=== PATIENT | female | born 2000 | race Caucasian/White ===

== ENCOUNTER 2018-11-30 20:00 | Observation (INO) ==
[2018-11-30] MEDS ORDERED: SODIUM CHLORIDE 0.9% 1000ML 1,000 ML IV ONE (20:27)
[2018-11-30] MEDS ORDERED: ONDANSETRON INJ 2 MG/ML 2 ML VIAL IV STA (20:27)
[2018-11-30] MEDS ORDERED: ONDANSETRON INJ 2 MG/ML 2 ML VIAL ONE ×2 (20:28→23:23)
[2018-11-30] MEDS ORDERED: HYDROmorphone INJ 0.5 MG/0.5 ML SYR IV PRN (20:34)
[2018-11-30] MEDS ORDERED: KETOROLAC 30 MG/ML VIAL IV STA (20:34)
[2018-11-30 20:38] LABS: Basophils # (auto) 0.01 K/uL (0-0.2); Basophils % (auto) 0.1 %; Eosinophils # (auto) 0.05 K/uL (0-0.5); Eosinophils % (auto) 0.4 %; Hematocrit (blood only) 37.7 % (37-47); Hemoglobin 12.9 g/dL (12.0-16.0); Immature Granulocytes # (auto) 0.03 K/uL (0.00-0.02); Immature Granulocytes % (auto) 0.2 %; Lymphocytes # (auto) 1.74 K/uL (1.2-3.4); Lymphocytes % (auto) 13.7 %; Mean Corpuscular Hemoglobin 29.5 pg (25-34); Mean Corpuscular Hgb Conc 34.2 g/dL (32-36); Mean Corpuscular Volume 86.3 fL (80-100); Mean Platelet Volume 8.8 fL (7.4-10.4); Monocytes # (auto) 0.68 K/uL (0.11-0.59); Monocytes % (auto) 5.4 %; Neutrophils # (auto) 10.19 K/uL (1.4-6.5); Neutrophils % (auto) 80.2 %; Platelet Count 245 K/uL (130-400); RDW Coefficient of Variation 13.1 % (11.5-14.5); RDW Standard Deviation 41.5 fL (36.4-46.3); Red Blood Count 4.37 M/uL (4.2-5.4)
[2018-11-30 20:49] LABS: iSTAT Creatinine 0.8 mg/dl; iSTAT Hemoglobin 13.3 g/dl (12.0-16.0); iSTAT Ionized Calcium 1.14 mmol/l; iSTAT Potassium 3.2 mEq/L (3.3-5.0)
[2018-11-30 20:54] LABS: Albumin Level 3.9 gm/dl (3.4-5.0); BUN Creatinine Ratio 13.8 (10-20); Calcium 9.7 mg/dl (8.5-10.1); Creatinine Clr Calc Pharmacy 72.5 ml/min; Est GFR (African American) 93.9; Potassium 3.2 mmol/L (3.5-5.1)
[2018-11-30 20:57] LABS: Bilirubin,Total 0.5 mg/dl (0.2-1); Total Protein 7.9 gm/dl (6.4-8.2)
[2018-11-30 21:26] LABS: Pregnancy Test, Serum Negative (Negative)
[2018-11-30] MEDS ORDERED: cefOXitin 2,000 MG/60 ML BAG IV STA (21:37)
--- NOTE | 2018-11-30 21:45 | Ultrasound Report ---
PELVIC ULTRASOUND, TRANSABDOMINAL AND TRANSVAGINAL HISTORY: Right lower quadrant pain. COMPARISON: None. FINDINGS: Uterus: 6.9 x 3.6 x 4.2 cm. A few small nabothian cysts. Endometrial stripe: 5 mm in thickness. Right ovary: Normal in size and demonstrates normal color flow. Left ovary: Normal in size and demonstrates normal color flow. Miscellaneous:There is a blind-ending tubular structure within the right lower quadrant measuring up to 8 mm in thickness. This is noncompressible and likely represents the appendix. Small amount of pel lenny free fluid. IMPRESSION: 1. Normal uterus and ovaries. 2. Abnormal appearing appendix as described above likely representing acute appendicitis. 3. Small amount of pelvic free fluid. Electronically signed by: Earnest Nix M.D. 11/30/2018 9:42 PM
[2018-11-30] MEDS ORDERED: BUPIVACAINE/EPINEPHRINE 0.5% MPF 1:200,000 30 ML VIAL ONE (21:58)
[2018-11-30 22:05] LABS: Pregnancy Test, Urine Negative (Negative)
[2018-11-30 22:06] LABS: Appearance Urine Cloudy (Clear); Bilirubin Urine Negative (Negative); Blood Urine Negative (Negative); Color Urine Dark Yellow; Epithelial Cell Urine Auto >30 /lpf (0-5); Glucose Urine UA Negative (Negative); Ketones Urine 2+ (Negative); Leukocyte Esterase Urine Negative (Negative); Nitrite Urine Negative (Negative); Specific Gravity Urine 1.026 (1.000-1.030); Urobilinogen Urine Negative (Negative); pH Urine >= 9.0 (4.5-7.5)
[2018-11-30 22:10] LABS: Protein Urine Negative (Negative); Sulfosalicylic Acid Urine Negative (Negative)
[2018-11-30 22:19] LABS: Bacteria Urine Automated 1+ (Negative); Cast Urine Automated 0 /lpf (0-5); Mucus Urine Present (None Prsent); RBC Urine Automated 0-4 /hpf (0-4)
--- NOTE | 2018-11-30 22:26 | History & Physical Report ---
Date of Service November 30, 2018 Assessment & Plan (1) Acute appendicitis: discussed with pt and her parents via phone. discussed options/risks ( bleeding/infection/dvt/pe/mi/cva/injury to an organ /leaks etc...) questions answered. will proceed with lap poss open appendectomy litzy. History of Present Illness Primary Care Provider: [facility] pt with lower abdominal pain and n/v starting this am. progressed. w/u in ER reveals acute appendicitis. Allergies Allergy/AdvReac Type Severity Reaction Status Date / Time No Known Allergies Allergy Verified 11/30/18 20:30 Home Medications Home Medications Medication Instructions Recorded Confirmed Type minocycline 50 mg PO DAILY 11/30/18 11/30/18 History norgestimate-ethinyl estradiol 1 tab PO DAILY 11/30/18 11/30/18 History [Ortho Tri-Cyclen (28)] Past Med/Surg History Social History Preferred Language: Sinhala Feels Safe at Home: Yes Smoking Status: Never smoker Review of Systems All systems reviewed & are unremarkable except as noted in HPI & below Physical Exam Constitutional: WD/WN, vitals as above no acute distress and not ill appearing Eyes: PERRL, conjunctivae normal, anicteric sclerae EOM intact bilaterally ENMT: external ear and nose normal, oropharynx normal Ears: no hearing impairment Neck: trachea midline, no thyromegaly Respiratory: normal respiratory effort; no respiratory distress and does not use accessory muscles Cardiovascular: Rate/Rhythm: regular rate and regular rhythm Gastrointestinal (Abdomen): soft. +RLQ ttp. +guarding/rebound. Skin: no rashes, warm and dry Psychiatric: Orientation: alert, oriented x 3 and cooperative Results & Data Vital Signs (Past 12 Hours) Vital Signs Temp Pulse Pulse Resp BP BP Pulse Ox 11/30/18 21:48 79 16 139/78 98 11/30/18 20:07 36.5 C 99 H 32 H 147/91 H 98
--- NOTE | 2018-11-30 22:44 | Anesthesiology Consultation ---
Date of Service November 30, 2018 Assessment & Plan (1) Encounter for pre-operative examination: Chart Review Chart Review: Acceptable Risk for Surgery and Patient NOT seen in Pre Admission Testing Consults Requested none ASA [id number] Proposed Anesthesia Anesthesia Type: General Risk / Benefits Reviewed With: PT / POA / Parent / Guardian, Accepts Plan and Informed Consent Obtained History Surgery Operation Date: 11/30/18 21:50 Proposed Procedures p Laparoscopic Appendectomy - Ilan Lentz, DO Height/Weight Height: 5 ft 4 in Weight: 51.2 kg Allergies Allergy/AdvReac Type Severity Reaction Status Date / Time No Known Allergies Allergy Verified 11/30/18 20:30 Medications Home Medications Medication Instructions Recorded Confirmed Last Taken minocycline 50 mg PO DAILY 11/30/18 11/30/18 11/30/18 norgestimate-ethinyl estradiol 1 tab PO DAILY 11/30/18 11/30/18 11/30/18 [Ortho Tri-Cyclen (28)] Active Medications Generic Name Dose Route Start Last Admin Trade Name Freq PRN Reason Stop Dose Admin Hydromorphone HCl 0.5 mg 11/30/18 20:34 11/30/18 20:46 Dilaudid IV 12/14/18 20:33 0.5 mg Q15M PRN Administration Pain NPO Date Last Intake of Fluids: 11/30/18 Time Last Intake of Fluids: 21:00 Last Intake of Fluids Comment: oral contrast Date Last Intake of Solids: 11/30/18 Time Last Intake of Solids: 17:00 Exercise / Class Metabolic Activity II 4-5 Yardwork/Stairs/Walk up hill Past Anesthesia History No Hx of Anesthesia Complications and No Family Hx of Anesthesia Complications History of PONV No Hx of PONV and No Hx of Motion Sickness Social History Smoking Status: Never smoker Physical Exam Vital Signs Last Vital Signs Temp 36.5 C 11/30/18 20:07 Pulse 79 11/30/18 21:48 Resp 16 11/30/18 21:48 BP 139/78 11/30/18 21:48 Pulse Ox 98 11/30/18 21:48 ENMT Mouth: no dentition abnormality Thyromental Distance: > or= 3.5 Finger Breadths Mallampati Class: II Neck normal visual inspection Respiratory normal respiratory effort Auscultation: lungs clear to auscultation bilaterally Cardiovascular Rate/Rhythm: regular rate and regular rhythm Psychiatric Orientation: alert Testing Laboratory Results 11/30/18 20:26 11/30/18 20:26 Urine Color Dark Yellow 11/30/18 21:40 Urine Appearance Cloudy (Clear) A 11/30/18 21:40 Urine pH >= 9.0 (4.5-7.5) H 11/30/18 21:40 Ur Specific [place] 1.026 (1.000-1.030) 11/30/18 21:40 Urine Protein Negative (Negative) 11/30/18 21:40 Urine Glucose (UA) Negative (Negative) 11/30/18 21:40 Urine Ketones 2+ (Negative) H 11/30/18 21:40 Urine Nitrite Negative (Negative) 11/30/18 21:40 Ur Leukocyte Esterase Negative (Negative) 11/30/18 21:40 Urine WBC (Auto) 1-5 /hpf (0-5) 11/30/18 21:40 Urine RBC (Auto) 0-4 /hpf (0-4) 11/30/18 21:40 U Hyaline Cast (Auto) 0 /lpf (0-5) 11/30/18 21:40 U Epithel Cells (Auto) >30 /lpf (0-5) H 11/30/18 21:40 Urine Bacteria (Auto) 1+ (Negative) H 11/30/18 21:40 Urine Test Negative (Negative) 11/30/18 21:40 11/30/18 20:35 POC Glucose (other) 121 H 11/30/18 21:40 Urine Test Negative
[2018-11-30] MEDS ORDERED: fentaNYL citrate 100 MCG/2 ML VIAL ONE ×2 (22:47)
[2018-11-30] MEDS ORDERED: MoRPHine SULFATE 2 MG/ML CARP ONE (23:06)
[2018-11-30] MEDS ORDERED: PROPOFOL IV EMULSION 10 MG/ML 20 ML VIAL IV ONE (23:22)
[2018-11-30] MEDS ORDERED: LIDOCAINE HCL 2% 2 ML VIAL/AMP(20MG/ML) INFIL ONE (23:22)
[2018-11-30] MEDS ORDERED: DEXAMETHASONE SOD INJ 4 MG/ML VIAL ONE (23:23)
[2018-11-30] MEDS ORDERED: SUCCINYLCHOLINE CHLORIDE 20 MG/ML 10 ML VIAL ONE (23:23)
[2018-11-30] MEDS ORDERED: KETOROLAC 30 MG/ML VIAL ONE (23:23)
[2018-11-30] MEDS ORDERED: ROCURONIUM BROMIDE 10 MG/ML 5 ML VIAL ONE (23:23)
--- NOTE | 2018-11-30 23:37 | Operative Report ---
Post Operative Report Pre & Post Diagnosis Operation Date: 11/30/18 21:50 Pre-Op Diagnosis: Acute appendicitis Post-Op Diagnosis: Acute appendicitis Procedure Operation Date: 11/30/18 21:50 Actual Procedures p Laparoscopic Appendectomy(Not Applicable) - Ilan Lentz DO Surgeon Ilan Lentz DO Meter Repairer n/a Estimated Blood Loss 5 Findings Consistent with Post-Op Diagnosis Specimens appendix Description of Procedure After informed consent was obtained the patient was taken to the operating room and placed in supine position. After successful intubation a Mora catheter was placed and the left arm was tucked. A Mora catheter was inserted sterilely. I began by making a periumbilical incision with an 11 blade scalpel and carried this down through the soft tissue using electrocautery. The anterior rectus fascia was opened using electrocautery and 2 #0 Vicryl stay sutures were placed. The peritoneum was elevated using hemostats and incised under direct vision using a Metzenbaum scissor. A finger sweep was performed. A 12 mm Yanez trocar was placed and the abdomen was insufflated to 18 mmHg. A laparoscope was inserted and the abdomen was examined in 360. A suprapubic 5 mm port and a left lower quadrant 12 mm port were placed under direct vision. The patient was air planed to the left as well as placed in a slight Trendelenburg position. We began by looking in the right lower quadrant. We were able to readily identify the appendix and it was grossly inflamed. It had not perforated. There is a small amount of purulent fluid in the right lower quadrant and the pelvis. We immediately irrigated and suctioned this out. I was able to use primarily blunt dissection to pull the appendix away from the right lower quadrant sidewall. I was then able to use a GARCIA brown cartridge stapler to transect both the mesentery of the appendix as well as the appendix itself at its base with the cecum. It was then placed into an Endo Catch bag and removed from the camera port site. We thoroughly irrigated the right lower quadrant as well as the pelvis. There was adequate hemostasis. I ran the small bowel backwards from the terminal ileum for about 6 feet all of which was normal. All the peritoneal surfaces were normal. Small/ large bowel, liver, stomach etc. all appeared grossly normal. We did a final irrigation and then removed all the trochars and desufflated the abdomen. The fascia of the camera port as well as the left lower quadrant were closed using 0 Vicryl in [id number] fashion. Wounds were all irrigated and closed using 4-0 Monocryl. Marcaine was injected around them for postoperative analgesia and skin glue used as a dressing. The patient was awakened extubated and transferred to recovery in stable condition. I attest to the content of the Intraoperative Record and any orders documented therein. Any exceptions are noted below.
--- NOTE | 2018-11-30 23:49 | Emergency Department Note ---
History of Present Illness General Chief complaint: Abdominal Pain Stated complaint: EXTREME ABD PAIN, THROWN UP Time Seen by Provider: 11/30/18 20:19 Source: patient, family, RN notes reviewed and friends Mode of arrival: ambulatory History of Present Illness Provider complaint: abdominal pain Onset (ago): hour(s) 6 Location: abdomen Radiation: back Severity: severe Pain Consistency: + constant Maximum Pain Intensity: 10 Current Pain Intensity: 10 Quality: + aching Relieved By: + none Exacerbated By: + none Associated symptoms: + nausea/vomiting Treatments prior to arrival: none This is a 18-year-old female who presents emergency department complaining of severe right lower quadrant abdominal pain approximately 6 hours prior to arrival to the emergency department. Patient relates that she has been having this pain for the past year however today became very severe. The patient thought she was having an ovarian issue. She reports she does not feel she is and last menstrual period was approximately 1 week ago. She denies retained tampon. She does report a family history of her father having her appendix out. The patient passed out twice here in the emergency department including once in triage from the pain. Home Medications Home Medications Medication Instructions Recorded Confirmed Type minocycline 50 mg PO DAILY 11/30/18 11/30/18 History norgestimate-ethinyl estradiol 1 tab PO DAILY 11/30/18 11/30/18 History [Ortho Tri-Cyclen (28)] Allergies Allergy/AdvReac Type Severity Reaction Status Date / Time No Known Allergies Allergy Verified 11/30/18 20:30 Past Med/Surg History Social History Preferred Language: Georgian Feels Safe at Home: Yes Smoking Status: Never smoker Review of Systems A total of 10 systems reviewed and were otherwise negative Physical Exam Vital Signs Vital Signs - 24 hr 11/30/18 20:07 11/30/18 21:48 11/30/18 22:39 Temperature 36.5 C Temperature Source Oral Sepsis Recent Fever Within 48 Hours No Sepsis Action Taken by Nursing No Action Required Pulse Rate 99 H Pulse Rate [Right Finger] 79 Pulse Rhythm Regular Pulse Strength Normal Respiratory Rate 32 H 16 Respiratory Effort / Characteristics Non-Labored Spontaneous Non-Labored Spontaneous Respiratory Depth Normal Normal Respiratory Pattern Regular Regular Blood Pressure 147/91 H Blood Pressure [Right Arm] 139/78 Blood Pressure Mean 109 Blood Pressure Mean [Right Arm] 98 Blood Pressure Position Sitting Blood Pressure Position [Right Arm] Lying Pulse Oximetry 98 98 Oxygen Delivery Method Room Air Room Air Room Air GENERAL: Patient is a healthy-appearing well-nourished HEAD: Normocephalic atraumatic EYES: Ocular movements intact pupils equal and react to light OROPHARYNX mucous membranes are moist no exudates present no erythema or edema present NECK: Supple no nuchal rigidity CHEST: Good equal expansion LUNGS: Clear and equal to auscultation CARDIAC: Normal S1 and S2 ABDOMEN: Soft, tender in RLQ, + guarding BACK: No CVA tenderness EXTREMITIES: No pain upon palpation normal muscle strength in all groups no clubbing cyanosis or edema NEURO: Patient is following commands is answering questions appropriately. Alert and oriented x3 Cranial Nerves 2-12 grossly intact Course Administered Medications Hydromorphone HCl (Dilaudid) 0.5 mg IV Q15M PRN PRN Reason: Pain Stop: 12/14/18 20:33 Last Admin: 11/30/18 20:46 Dose: 0.5 mg Documented by: [id number] Discontinued Medications Bupivacaine HCl/Epinephrine Bitart (Sensorcaine/Epinephrine 0.5% Mpf 1:200,000) Confirm Administered Dose 30 ml .ROUTE .STK-MED ONE Stop: 11/30/18 21:59 Last Admin: 11/30/18 23:24 Dose: 24 ml Documented by: [id number] Sodium Chloride (Nss 1000ml) 1,000 mls @ 999 mls/hr IV .Q1H1M ONE Stop: 11/30/18 21:27 Last Infusion: 11/30/18 21:47 Dose: 0 mls/hr Documented by: [id number] Admin: 11/30/18 20:42 Dose: 999 mls/hr Documented by: [id number] Cefoxitin Sodium (Mefoxin) 2,000 mg in 60 mls @ 100 mls/hr IV NOW STA Stop: 11/30/18 22:12 Last Admin: 11/30/18 22:06 Dose: 100 mls/hr Documented by: [id number] Ketorolac Tromethamine (Toradol) 30 mg IV NOW STA Stop: 11/30/18 20:35 Last Admin: 11/30/18 20:46 Dose: 30 mg Documented by: [id number] Ondansetron HCl (Zofran) Confirm Administered Dose 4 mg .ROUTE .STK-MED ONE Stop: 11/30/18 20:29 Last Admin: 11/30/18 20:42 Dose: Not Given Documented by: [id number] Ondansetron HCl (Zofran) 4 mg IV NOW STA Stop: 11/30/18 20:28 Last Admin: 11/30/18 20:42 Dose: 4 mg Documented by: [id number] Medical Decision Making Medical Records Attestation: I reviewed the patient's medical records. Home Medications Current Medication List: was personally reviewed by me Laboratory Data Attestation: I reviewed the patient's lab results. Result diagrams: 11/30/18 20:26 11/30/18 20:26 Lab Results 11/30/18 11/30/18 11/30/18 Range/Units 20:26 20:26 20:26 WBC 12.70 H (4.8-10.8) K/uL RBC 4.37 (4.2-5.4) M/uL Hgb 12.9 (12.0-16.0) g/dL POC Hgb (12.0-16.0) g/dl Hct 37.7 (37-47) % POC Hct (37-47) % MCV 86.3 (80-100) fL MCH 29.5 (25-34) pg MCHC 34.2 (32-36) g/dL RDW Std Deviation 41.5 (36.4-46.3) fL RDW Coeff of Vane 13.1 (11.5-14.5) % Plt Count 245 (130-400) K/uL MPV 8.8 (7.4-10.4) fL Immature Gran % (Auto) 0.2 % Neut % (Auto) 80.2 % Lymph % (Auto) 13.7 % Brooks % (Auto) 5.4 % Eos % (Auto) 0.4 % Baso % (Auto) 0.1 % Immature Gran # (Auto) 0.03 H (0.00-0.02) K/uL Neut # (Auto) 10.19 H (1.4-6.5) K/uL Lymph # (Auto) 1.74 (1.2-3.4) K/uL Brooks # (Auto) 0.68 H (0.11-0.59) K/uL Eos # (Auto) 0.05 (0-0.5) K/uL Baso # (Auto) 0.01 (0-0.2) K/uL POC Sodium (135-144) mEq/L Sodium 138 (136-145) mmol/L POC Potassium (3.3-5.0) mEq/L Potassium 3.2 L (3.5-5.1) mmol/L POC Chloride (101-112) mEq/L Chloride 106 (98-107) mmol/L Carbon Dioxide 21 (21-32) mmol/L POC Total CO2 (24-31) mEq/l Anion Gap 12.0 H (3-11) POC Anion Gap (16-25) mmol/L POC BUN (7-18) mg/dl BUN 14 (7-18) mg/dl Creatinine 1.00 (0.6-1.2) mg/dl POC Creatinine mg/dl Est Cr Clr Drug Dosing 72.5 ml/min Est GFR ( Amer) 93.9 Est GFR (Non-Af Amer) 81.0 BUN/Creatinine Ratio 13.8 (10-20) Glucose 121 H (70-99) mg/dl POC Glucose (other) (70-99) mg/dl Calcium 9.7 (8.5-10.1) mg/dl POC Ioniz Calcium Kunal mmol/l Total Bilirubin 0.5 (0.2-1) mg/dl AST 16 (15-37) U/L ALT 17 (12-78) U/L Alkaline Phosphatase 65 (45-117) U/L Total Protein 7.9 (6.4-8.2) gm/dl Albumin 3.9 (3.4-5.0) gm/dl Globulin 4.0 (2.5-4.0) gm/dl Albumin/Globulin Ratio 1.0 (0.9-2) Lipase 128 (73-393) U/L HCG, Qual Negative (Negative) Urine Color Urine Appearance (Clear) Urine pH (4.5-7.5) Ur Specific [place] (1.000-1.030) Urine Protein (Negative) Urine Glucose (UA) (Negative) Urine Ketones (Negative) Urine Blood (Negative) Urine Nitrite (Negative) Urine Bilirubin (Negative) Urine Urobilinogen (Negative) Ur Leukocyte Esterase (Negative) Urine WBC (Auto) (0-5) /hpf Urine RBC (Auto) (0-4) /hpf U Hyaline Cast (Auto) (0-5) /lpf U Epithel Cells (Auto) (0-5) /lpf Urine Bacteria (Auto) (Negative) Urine Mucus (None Prsent) Urine Yeast Urine Test (Negative) 11/30/18 11/30/18 11/30/18 Range/Units 20:35 21:40 21:40 WBC (4.8-10.8) K/uL RBC (4.2-5.4) M/uL Hgb (12.0-16.0) g/dL POC Hgb 13.3 (12.0-16.0) g/dl Hct (37-47) % POC Hct 39 (37-47) % MCV (80-100) fL MCH (25-34) pg MCHC (32-36) g/dL RDW Std Deviation (36.4-46.3) fL RDW Coeff of Vane (11.5-14.5) % Plt Count (130-400) K/uL MPV (7.4-10.4) fL Immature Gran % (Auto) % Neut % (Auto) % Lymph % (Auto) % Brooks % (Auto) % Eos % (Auto) % Baso % (Auto) % Immature Gran # (Auto) (0.00-0.02) K/uL Neut # (Auto) (1.4-6.5) K/uL Lymph # (Auto) (1.2-3.4) K/uL Brooks # (Auto) (0.11-0.59) K/uL Eos # (Auto) (0-0.5) K/uL Baso # (Auto) (0-0.2) K/uL POC Sodium 138 (135-144) mEq/L Sodium (136-145) mmol/L POC Potassium 3.2 L (3.3-5.0) mEq/L Potassium (3.5-5.1) mmol/L POC Chloride 105 (101-112) mEq/L Chloride (98-107) mmol/L Carbon Dioxide (21-32) mmol/L POC Total CO2 22 L (24-31) mEq/l Anion Gap (3-11) POC Anion Gap 15.0 L (16-25) mmol/L POC BUN 12 (7-18) mg/dl BUN (7-18) mg/dl Creatinine (0.6-1.2) mg/dl POC Creatinine 0.8 mg/dl Est Cr Clr Drug Dosing ml/min Est GFR ( Amer) Est GFR (Non-Af Amer) BUN/Creatinine Ratio (10-20) Glucose (70-99) mg/dl POC Glucose (other) 121 H (70-99) mg/dl Calcium (8.5-10.1) mg/dl POC Ioniz Calcium Kunal 1.14 mmol/l Total Bilirubin (0.2-1) mg/dl AST (15-37) U/L ALT (12-78) U/L Alkaline Phosphatase (45-117) U/L Total Protein (6.4-8.2) gm/dl Albumin (3.4-5.0) gm/dl Globulin (2.5-4.0) gm/dl Albumin/Globulin Ratio (0.9-2) Lipase (73-393) U/L HCG, Qual (Negative) Urine Color Dark Yellow Urine Appearance Cloudy A (Clear) Urine pH >= 9.0 H (4.5-7.5) Ur Specific [place] 1.026 (1.000-1.030) Urine Protein Negative (Negative) Urine Glucose (UA) Negative (Negative) Urine Ketones 2+ H (Negative) Urine Blood Negative (Negative) Urine Nitrite Negative (Negative) Urine Bilirubin Negative (Negative) Urine Urobilinogen Negative (Negative) Ur Leukocyte Esterase Negative (Negative) Urine WBC (Auto) 1-5 (0-5) /hpf Urine RBC (Auto) 0-4 (0-4) /hpf U Hyaline Cast (Auto) 0 (0-5) /lpf U Epithel Cells (Auto) >30 H (0-5) /lpf Urine Bacteria (Auto) 1+ H (Negative) Urine Mucus Present A (None Prsent) Urine Yeast Not Reportable Urine Test Negative (Negative) Imaging Data Radiologist's Impression: PELVIC ULTRASOUND, TRANSABDOMINAL AND TRANSVAGINAL HISTORY: Right lower quadrant pain. COMPARISON: None. FINDINGS: Uterus: 6.9 x 3.6 x 4.2 cm. A few small nabothian cysts. Endometrial stripe: 5 mm in thickness. Right ovary: Normal in size and demonstrates normal color flow. Left ovary: Normal in size and demonstrates normal color flow. Miscellaneous:There is a blind-ending tubular structure within the right lower quadrant measuring up to 8 mm in thickness. This is noncompressible and likely represents the appendix. Small amount of pelvic free fluid. IMPRESSION: 1. Normal uterus and ovaries. 2. Abnormal appearing appendix as described above likely representing acute appendicitis. 3. Small amount of pelvic free fluid. Electronically signed by: Earnest Nix M.D. 11/30/2018 9:42 PM Dictated: 11/30/[id number] Transcribed: 11/30/182140 Blood Pressure Blood Pressure Findings: Elevated blood pressure Blood Pressure Disposition: further management by hospitalist EVAN Narrative This is a 18-year-old I tried to get in contact with this patient's parents multiple times without success due to the parents not answering the phone x2. The decision was made with the patient to send the patient for an ultrasound and to have her start drinking for a CAT scan. She does have an elevation in her white blood cell count of 12,000. She has a normal renal profile normal liver profile normal lipase. Patient was sent for an ultrasound of her ovaries. This ultrasound was concerning for acute appendicitis. Based on this I did discuss the case with the surgeon who asked that the CAT scan be canceled. Patient was given cefoxitin in the emergency department. At this point I was able to contact the patient's parents and relayed to them the issue. Patients are going to drive here from in the meanwhile the patient was given Toradol as well as Dilaudid for her pain. Repeat examination revealed improvement the patient's symptom patient was in agreement with the agreement plan. Impression & Plan Acute appendicitis, Abdominal pain Discharge Plan Visit Data *Final* Discharge Date/Time: 11/30/18 22:39 Chief Complaint: Abdominal Pain Stated Complaint: EXTREME ABD PAIN, THROWN UP ED Provider: Radhames Bach Discharge Problem: Acute appendicitis, Abdominal pain Patient Disposition: Admitted As Inpatient Discharge Instructions Interventions: ED Discharge Assessment Last Done: 11/30/18 22:39
[2018-12-01] MEDS ORDERED: ATROPINE SULFATE 0.1 MG/ML 10ML SYR IV PRN (00:24)
[2018-12-01] MEDS ORDERED: ePHEDrine sulfate 50 MG/ML AMP IV PRN (00:24)
[2018-12-01] MEDS ORDERED: HYDROmorphone INJ 2 MG/ML SYR/VIAL IV PRN (00:24)
[2018-12-01] MEDS ORDERED: PROMETHAZINE HCL 6.25 MG in SODIUM CHLORIDE 0.9% 50 ML IV PRN (00:24)
[2018-12-01] MEDS ORDERED: fentaNYL citrate 100 MCG/2 ML VIAL IV PRN (00:24)
[2018-12-01] MEDS ORDERED: ONDANSETRON INJ 2 MG/ML 2 ML VIAL IV PRN ×2 (00:24→01:09)
--- NOTE | 2018-12-01 00:25 | Anesthesiology Progress Note ---
Date of Service December 01, 2018 Anesthesia Post Procedure Vital Signs Vital Signs: Temp Pulse Pulse Resp BP BP Pulse Ox 12/01/18 00:18 70 18 118/76 99 12/01/18 00:10 63 18 123/78 99 11/30/18 23:55 36.5 C 88 18 126/75 100 11/30/18 21:48 79 16 139/78 98 11/30/18 20:07 36.5 C 99 H 32 H 147/91 H 98 Pain Intensity Right Lower Abdomen: Pain Intensity: 10 Transfer of Care Handoff Completed per policy Notes Mental Status: alert / awake / arousable Patient Amnestic to Procedure: Yes Nausea / Vomiting: adequately controlled Pain: adequately controlled Airway Patency, RR, SpO2: stable & adequate BP & HR: stable & adequate Hydration State: stable & adequate Anesthetic Complications: no major complications apparent
[2018-12-01] MEDS ORDERED: MoRPHine SULFATE 2 MG/ML CARP IV PRN (01:09)
[2018-12-01] MEDS ORDERED: IBUPROFEN 600 MG TAB PO PRN (01:09)
[2018-12-01] MEDS ORDERED: ACETAMINOPHEN 1,000 MG/100 ML VIAL IV PRN (01:09)
[2018-12-01] MEDS ORDERED: HYDROCODONE/ACETAMOPHEN 5/325MG TAB PO PRN (01:09)
[2018-12-01] MEDS ORDERED: MoRPHine SULFATE 4 MG/ML 1 ML CARP\\VIAL IV PRN (01:09)
[2018-12-01] MEDS: LACTATED RINGER'S 1,000 ML IV SCH ×2 (01:50→09:52)
[2018-12-01] MEDS: CEFAZOLIN 1000MG 1,000 MG/7.5 ML SYR IV SCH ×2 (01:57→09:52)
[2018-12-01] MEDS: HYDROCODONE/ACETAMOPHEN 5/325MG TAB PO PRN ×2 (06:14→10:15)
--- NOTE | 2018-12-01 07:48 | Surgery Progress Note ---
Date of Service December 01, 2018 Assessment & Plan (1) Acute appendicitis: POD 1 lap appy increase diet & activity, d/c later today Subjective no complaints, no nausea Physical Exam Gastrointestinal (Abdomen): Inspection/Auscultation: abdomen not distended Percussion/Palpation: abdomen soft Results & Data Vital Signs (Past 12 Hours) Vital Signs Temp Pulse Pulse Resp BP BP BP 12/01/18 07:31 36.9 C 96 H 16 113/66 12/01/18 04:28 36.7 C 65 14 119/75 12/01/18 03:07 36.6 C 91 H 14 125/78 12/01/18 02:12 36.5 C 55 L 14 118/73 12/01/18 01:46 36.4 C L 76 14 125/85 12/01/18 01:17 36.3 C L 65 16 128/83 12/01/18 01:08 36.4 C L 82 16 114/73 12/01/18 00:50 36.6 C 71 18 117/73 12/01/18 00:35 65 18 116/73 12/01/18 00:18 70 18 118/76 12/01/18 00:10 63 18 123/78 11/30/18 23:55 36.5 C 88 18 126/75 11/30/18 21:48 79 16 139/78 11/30/18 20:07 36.5 C 99 H 32 H 147/91 H Pulse Ox 12/01/18 07:31 99 12/01/18 04:28 100 12/01/18 03:07 96 12/01/18 02:12 94 12/01/18 01:46 95 12/01/18 01:17 97 12/01/18 01:08 99 12/01/18 00:50 95 12/01/18 00:35 96 12/01/18 00:18 99 12/01/18 00:10 99 11/30/18 23:55 100 11/30/18 21:48 98 11/30/18 20:07 98 PG Care Time/CCT Total # of Minutes Spent Total Time Spent with Patient: Total time spent is greater than 50% in coordination of care (as documented) at patient's floor/unit and/or counseling patient: (1) Acute appendicitis Acute appendicitis type: unspecified acute appendicitis type Qualified Code(s): K35.80 - Unspecified acute appendicitis
[2018-12-01] MEDS ORDERED: BCP'S~ORDER AWAITING ACTION SCH (08:00)
--- NOTE | 2018-12-04 08:18 | Discharge Summary ---
Date of Service December 04, 2018 Admission HPI Per Admitting Provider pt with lower abdominal pain and n/v starting this am. progressed. w/u in ER reveals acute appendicitis. Principal Diagnosis 1. Acute appendicitis Discharge Exam Gastrointestinal (Abdomen) Inspection/Auscultation: + abdominal surgical incision (clean, dry); abdomen not distended Percussion/Palpation: abdomen soft Discharge Data Allergies Allergy/AdvReac Type Severity Reaction Status Date / Time No Known Allergies Allergy Verified 11/30/18 20:30 Consultations 11/30/18 21:39 ED Decision to Admit Stat Procedures Performed Operation Date: 11/30/18 21:50 Actual Procedures p Laparoscopic Appendectomy(Not Applicable) - Ilan Lentz DO Ordered Studies 11/30/18 20:34 US pelvic complete Stat 11/30/18 20:36 US transvaginal Stat Hospital Course (1) Acute appendicitis: 18 y/o female presented to ED with RLQ pain. White count was 12,000 and ultrasound was consistent with appendicitis. She underwent appendectomy that evening and was observed overnight on the surgical floor. She was able to tolerate regular diet and oral analgesics in the morning. She was stable for dis charge later in the day. Total Time Total Time Spent Total Time Spent (In Minutes): 15 Discharge Plan Discharge Items Patient Disposition: Home - Self-Care Reason For Visit: EXTREME ABD PAIN, THROWN UP Discharge Diagnosis: Appendicitis Activity: As commented below Lifting: No more than 10 pounds Bathing: No limitations Driving/Machine Use: Resume 3 days after discharge Non-emergency contact: Surgeon Call non-emergency contact if: you have any medication questions, your pain is not controlled, your temperature is above 101.5 and your wound has increased redness Follow-up/Referrals: Ilan Lentz DO [Surgeon] - (Call to make an appt in 2 weeks) [facility] [Primary Care Provider] - Diet: Regular Addtl Attending Provider Instructions: Pending Studies at Discharge: No Stand-Alone Forms: [email or web address]School Release (Inpt) Medications and DC Order Prescriptions: New hydrocodone-acetaminophen [Stendal] 5-325 mg tablet 1 - 2 tab PO Q4H PRN (Reason: pain, initial therapy) Qty: 15 RF: 0 Continued norgestimate-ethinyl estradiol [Ortho Tri-Cyclen (28)] 0.18/0.215/0.25 mg-35 mcg (28) Tablet 1 tab PO DAILY RF: 0 minocycline 50 mg Tablet 50 mg PO DAILY RF: 0 Discharge Orders: Discharge Order (Routine); Ordered 12/01/18 Ordered By: Nadeem Olivares Jr Admission Data Admit Date/Time: 12/01/18 01:09 Attending Provider: Ilan Lentz Admit Provider: Ilan Lentz Primary Care Provider: [facility] Other Providers: Ilan Lentz Other Interventions: Discharge Summary Assessment (RN) Last Done: 12/01/18 10:02 DC Date/Time DO NOT enter until pt leaves facility: 12/01/18 10:32
== END 2018-12-01 10:32 | disposition home or self-care (01) | DRG 343 ==
LOC: ED 20:00 → OR 22:39 → INTOOBSV 12-01 01:09 → 3N 12-01 01:09
DX: K35.80 Unspecified acute appendicitis